=== PATIENT | male | born 1985 | race Two or more races ===

== ENCOUNTER 2025-07-02 08:56 | Emergency (ER) | payer MEDICAID, SELFPAY ==
[2025-07-02 08:57] VITALS: BMI 33.2
[2025-07-02 09:23] VITALS: BP 126/89; PULSE 77; RESP 16; TEMP 37.2; O2SAT 97
--- NOTE | 2025-07-02 09:26 | XR_ITS ---
Examination: Foot, left, 3 views Technique: AP, oblique, lateral views foot, 3 views Date and time of exam: July 02, 2025 0945 hours INDICATIONS: Injury to the foot 3 weeks ago, foot pain. FINDINGS: Adequate bone density. No fracture or dislocation. Mild narrowing first metatarsophalangeal joint IMPRESSION: No acute fracture
--- NOTE | 2025-07-02 09:26 | XR_ITS ---
EXAMINATION: Ankle, left 3 views . Technique: Ankle AP, oblique, lateral 3 views Date and time of exam: July 02, 2025 0945 hours INDICATIONS: Injury to the ankle 3 weeks ago with ankle pain. FINDINGS: Lateral malleolar soft tissue swelling. No ankle fracture or dislocation IMPRESSION: No ankle fracture or dislocation
--- NOTE | 2025-07-02 10:43 | PD.EDANKLE ---
Lower Extremity Injury RME/HPI General Chief Complaint: Ankle/Foot Injury Stated Complaint: LEFT ANKLE INJURY X3 WKS Time Seen by Provider: 07/02/25 09:01 Arrival date/time: 07/02/25 08:56 40-year-old male presents to the Emergency Department a complaint of left ankle pain patient when he twisted his left ankle 3 weeks ago and since that has been having pain and swelling Limitations: no limitations Related Data Previous Rx's ?Medication ?Instructions ?Recorded Promethazine/Codeine SYRUP * 5 ml PO Q4HR PRN 120 #120 mL 10/10/15 (PHENERGAN WITH CODEINE SYRUP *) ibuprofen 800 mg tablet 800 mg PO TID PRN pain #30 tabs 07/02/25 Allergies Allergy/AdvReac Type Severity Reaction Status Date / Time No Known Allergies Allergy Verified 07/02/25 09:00 Review of Systems Review of Systems Systems Reviewed: All systems reviewed, normal except as documented Constitutional Constitutional: Reports system reviewed and no additional complaints, except as documented, Denies fever(s) and Denies headache(s) Eyes Eyes: Reports system reviewed and no additional complaints, except as documented and Denies blurry vision ENT Ears, Nose, Mouth, and Throat: Reports system reviewed and no additional complaints, except as documented, Denies headache(s), Denies nasal congestion and Denies nasal discharge Cardiovascular Cardiovascular: Reports system reviewed and no additional complaints, except as documented, Denies chest pain and Denies dyspnea Respiratory Respiratory: Reports system reviewed and no additional complaints, except as documented, Denies chest congestion, Denies cough and Denies dyspnea Gastrointestinal Gastrointestinal: Reports system reviewed and no additional complaints, except as documented and Denies abdominal pain Musculoskeletal Musculoskeletal: Reports system reviewed and no additional complaints, except as documented, Reports abnormal gait, Reports arthralgias, Denies deformity, Denies numbness, Reports stiffness and Denies tingling Integumentary/Breasts Skin/Breast: Reports system reviewed and no additional complaints, except as documented and Denies rash Neurologic Neurologic: Reports system reviewed and no additional complaints, except as documented, Reports as per HPI, Reports abnormal gait, Denies headache(s), Denies numbness and Denies tingling Past Medical History Social History SMOKING STATUS: Never smoker ED Exam General Limitations: Present no limitations General appearance: Present alert and in no apparent distress Head Head exam: Present atraumatic Eye Eye exam: Present normal appearance, PERRL and EOMI ENT ENT exam: Present normal exam, normal oropharynx and mucous membranes moist Neck Neck exam: Present normal inspection, full ROM and trachea midline Chest Chest inspection: Present normal inspection and symmetric chest wall rise Respiratory Respiratory exam: Present normal lung sounds bilaterally Cardiovascular Cardiovascular exam: Present regular rate, normal rhythm and normal heart sounds Abdominal Exam Abdominal exam: Present soft and normal bowel sounds Extremities Exam Extremities exam: Present full ROM, tenderness (Left ankle pain), normal capillary refill and joint swelling; Absent pedal edema or calf tenderness Back Exam Back exam: Present normal inspection and full ROM Neurological Exam Neurological exam: Present alert, oriented X3 and CN II-XII intact Psychiatric Psychiatric exam: Present normal affect and normal mood Skin Skin exam: Present warm, dry, intact and normal color Course Quality Measures none Orders Category Date Time Status XR ankle comp LT min 3V Stat Exams 07/02/25 09:26 Completed XR foot comp LT min 3V Stat Exams 07/02/25 09:26 Completed Vital Signs Vital signs: Vital Signs Temperature 99.0 F 07/02/25 09:23 Pulse Rate 77 07/02/25 09:23 Respiratory Rate 16 07/02/25 09:23 Blood Pressure 126/89 H 07/02/25 09:23 Pulse Oximetry (%) 97 07/02/25 09:23 Oxygen Delivery Method Room Air 07/02/25 09:23 O2 saturation 97% room air with normal limits Extremity Injury, Lower MDM Narrative MDM Narrative:: 40-year-old male presents to the Emergency Department a complaint of left ankle pain patient when he twisted his left ankle 3 weeks ago and since that has been having pain and swelling Imaging left ankle pain no acute fracture dislocation noted On exam patient is mild swelling Explained to patient needs to have an outpatient MRI for further evaluation for ligamentous tear or subtle fracture. Patient offered crutches but declined Patient placed in Raymond wrap Patient discharged home in no distress to follow-up with primary care doctor in the next 24 to 48 hours and for any worsening symptoms to return to the ER immediately Patient data External records reviewed:: [facility] previous records Clinical information provided by:: patient Social determinants that could affect healthcare access:: none Patient has the following chronic illnesses:: None How is presenting disease/condition affected by chronic disease/condition?: no chronic disease Evaluation data The following diagnostics were reviewed and interpreted by me:: radiology exam(s) Lab and/or radiology exams considered but not ordered:: Radiology obtained Interpretation Summary: Reviewed by me Medications / Prescriptions Medications or Prescriptions considered but not ordered:: Given Medication administrations:: Given Consultations Consultation(s) initiated? (list below): No Diagnosis Extremity Injury, Lower Differential Diagnosis: ankle sprain and strain and ankle fracture Most likely diagnosis given after review of the tests above:: Ankle sprain Admission Indicated Admission indicated?: not indicated Admission Request Was there a request for admission?: No Disposition Plan Disposition Plan: Discharge Discharge Attestation Discharge Attestation: The patient and all family members were given an opportunity to ask questions and understood the discharge instructions. Discharge instructions specifically effects, indications for sooner follow up or return to the emergency department, and the expected course of current diagnosis. Patient condition: Stable Discharge Plan Plan Patient Disposition: HOME (Self Care) Discharge Disposition comment: Stable Prescriptions/Referrals Prescriptions/Med Rec: New ibuprofen 800 mg tablet 800 mg PO TID PRN (Reason: pain) Qty: 30 0RF No Action Promethazine/Codeine SYRUP * (PHENERGAN WITH CODEINE SYRUP *) 120 ML syrup 5 ml PO Q4HR PRN (Reason: 120) Qty: 120 0RF Referrals: No Primary/Family,Physician [Primary Care Provider] - In 1 week Problem List Clinical Impression: Left ankle sprain Patient/Caregiver Discharge Instructions Education Materials: ED RAYMON[place] Wrap Additional Instructions: Please follow up with your primary care doctor in the next 24-48hrs for any worsening symptoms return here immediately If pain persist or worsen you may need an MRI for further evaluation Print Language: Faroese Stand Alone Forms: Kat Award Info., Patient Portal Info Letter PA/PAPERBOARD BOXES ESTIMATOR Supervising Physician PA/TEJINDER Supervising Physician: dr north
== END 2025-07-02 11:42 | disposition home or self-care (01) ==
PROVIDERS: Emergency Provider Emergency Medicine
DX: S93.402A Sprain of unspecified ligament of left ankle, initial encounter (principal); X50.1XXA Overexertion from prolonged static or awkward postures, initial encounter
CPT/HCPCS: 73610; 73630; 99282